=== PATIENT | male | born 1995 | race Caucasian/White ===

== ENCOUNTER 2022-07-11 17:51 | Observation (INO) ==
[2022-07-11 17:56] VITALS: BMI 23.0
--- NOTE | 2022-07-11 18:01 | DR.BITE ---
HPI Time Seen Time Seen by Provider: 07/11/22 18:00 PCP Primary Care Physician: GRETCHEN Complaint/Symptoms Chief Complaint Doctor Comments: 27 y/o male presents with a snake bite to the R thumb, about 20 minutes ago. Brought the snake in, appears to be a coral snake. Has a small puncture wound to R thumb. No pain or swelling. Has some numbness of the R hand (but does have a tourniquet on his R arm). [place] was [place], picked the snake up behind the head. went to relaes it, and it bit him. One puncture wound to the R thumb. Chief Complaint:: PT. STATES HE GOT BIT ON THE RIGHT THUMB BY A CORAL SNAKE 15 MINUTES PRIOR TO ARRIVAL. BITE BELA ON RIGHT THUMB. PT. DENIES PAIN BUT C/O NUMBNESS TO RIGHT ARM. COVID-19 Coronavirus risk:travel/contact w/high risk person: No Has patient experienced Coronavirus symptoms: No Source History Provided: Patient Mode of Arrival Mode of Arrival: Ambulatory Timing Onset of Chief Complaint: 07/11/22 PMH PMH Past Medical History: No Past Surgical History: No Surgical History: No History Family History History of Family Medical Conditions: No Social History Does patient currently use any type of tobacco product: Yes Have you used tobacco products in the last 12 months: Yes Type of Tobacco Use: Cigarettes Does any household member use tobacco: Yes Alcohol Use: None Do you use any recreational Drugs:: Yes (THC) Lives With: Family Lives Where: Home Travel Risk Coronavirus risk:travel/contact w/high risk person: No Has patient experienced Coronavirus symptoms: No Infectious screening In the last 2 months have you had wt loss of >10#?: NO Have you had fever, night sweats or hemotysis?: No Have you traveled outside the country in the last 6 months?: No Isolation: Standard ROS Review of Systems Constitutional: No Symptoms Reported Eyes: No Symptoms Reported ENTM: No Symptoms Reported Respiratoy: No Symptoms Reported Cardiovascular: No Symptoms Reported Gastrointestinal/Abdominal: No Symptoms Reported Genitourinary: No Symptoms Reported Neurological: No Symptoms Reported Musculoskeletal: No Symptoms Reported Integumentary: No Symptoms Reported Psychiatric: No Symptoms Reported All Other Systems: Reviewed and Negative PE Vital Signs Vital Signs: Temp Pulse Resp BP Pulse Ox O2 Del Method 07/11/22 19:30 92 H 27 H 98 07/11/22 19:30 121/69 07/11/22 19:15 95 H 18 100 07/11/22 19:00 95 H 22 100 07/11/22 19:00 127/78 07/11/22 18:45 105 H 20 100 07/11/22 18:30 98 H 21 99 07/11/22 18:30 129/79 07/11/22 18:15 98 H 24 98 07/11/22 18:01 148/112 07/11/22 18:01 107 H 35 H 98 07/11/22 18:00 103 H 28 H 96 07/11/22 17:55 106 H 25 H 07/11/22 17:52 99.2 F 109 H 23 172/108 98 Room Air Constitutional General Appearance: Alert and In No Apparent Distress Eyes Eye exam: PERRL and EOMI ENT ENT Exam: Normal Oropharynx and Mucous Membranes Moist Neck Neck Exam: Normal Inspection and Full ROM Respiratory Respiratory Exam: Normal Lung Sounds Bilat; negative Accessory Muscle Use or Respiratory Distress Cardiovascular Cardiovascular Exam: Regular Rate, Normal Rhythm and Normal Heart Sounds Abdominal Exam Abdominal Exam: Normal Inspection, Normal Bowel Sounds and Soft; negative Tenderness Extremities Extremities Exam: Normal Inspection; negative Edema Neurologic Neurological Exam: Alert, Oriented X3 and CN II-XII Intact; negative Motor Sensory Deficit Skin Skin Exam: Warm and Dry Other Exam Other Exam: R thumb - + small, closed puncture wound of R thumb, distal phalanx. No swelling or tenderness. + NV intact. COURSE Treatment Treatment: 27 y/o male bit with coral snake [employer]. Numbness improved with removal of a tourniquet he put on. No signs of envenomation on arrival, wound circled. W/u initiated. Given IV fluids. Tetanus already UTD. Picture of snake sent ot DNR agent, confirmed coral snake. Most likely a "dry bite". 1913 - labs acceptable. Continues to do well. Recommendation is to observe for 24 hours. Looking out for muscle weakness, respiratory failure which may require ventilatory support. Discussed with pt. Discussed with Dr Garcia, accepts the observation admission. ROR Labs Reviewed Laboratory Results Reviewed?: Yes Result Diagrams: 07/11/22 17:54 07/11/22 18:30 Laboratory: WBC 11.4 X10^3/uL (3.6-10.0) H 07/11/22 17:54 RBC 4.83 X10^6/uL (4.7-6.0) 07/11/22 17:54 Hgb 14.5 g/dL (13.5-18.0) 07/11/22 17:54 Hct 42.6 % (42.0-54.0) 07/11/22 17:54 MCV 88.3 fL (80.0-100.0) 07/11/22 17:54 MCH 30.0 pg (27.0-34.0) 07/11/22 17:54 MCHC 34.0 g/dL (33.0-35.0) 07/11/22 17:54 RDW 13.7 % (11.6-16.5) 07/11/22 17:54 Plt Count 392 X10^3/uL (150.0-450.0) 07/11/22 17:54 MPV 7.6 fL (7.4-11.0) 07/11/22 17:54 Neut % (Auto) 55.9 % (42.0-75.0) 07/11/22 17:54 Lymph % (Auto) 32.2 % (21.0-51.0) 07/11/22 17:54 [place] % (Auto) 4.9 % (0.0-13.0) 07/11/22 17:54 Eos % (Auto) 3.8 % (0.9-2.9) H 07/11/22 17:54 Baso % (Auto) 3.2 % (0.2-1.0) H 07/11/22 17:54 Neut # (Auto) 6.4 x10^3/uL (2.2-4.8) H 07/11/22 17:54 Lymph # (Auto) 3.7 X10^3/uL (1.3-2.9) H 07/11/22 17:54 [place] # (Auto) 0.6 x10^3/uL (0.3-0.8) 07/11/22 17:54 Eos # (Auto) 0.4 x10^3/uL (0.0-0.2) H 07/11/22 17:54 Baso # (Auto) 0.4 X10^3/uL (0.0-0.1) H 07/11/22 17:54 Absolute Nucleated RBC 0.1 /100WBC 07/11/22 17:54 PT 12.8 SECONDS (11.8-14.3) 07/11/22 17:54 INR Target Range - 07/11/22 17:54 INR 0.99 (0.8-1.3) 07/11/22 17:54 APTT 26.9 SECONDS (22.9-36.5) 07/11/22 17:54 PTT Comment - 07/11/22 17:54 Sodium 143 mmol/L (136-145) 07/11/22 18:30 Corrected Sodium 144 mmol/L (136-145) 07/11/22 18:30 Potassium 3.3 mmol/L (3.5-5.1) L 07/11/22 18:30 Chloride 104 mmol/L (98-107) 07/11/22 18:30 Carbon Dioxide 31.4 mmol/L (21-32) 07/11/22 18:30 BUN 12 mg/dL (7-18) 07/11/22 18:30 Creatinine 1.00 mg/dL (0.70-1.30) 07/11/22 18:30 Est GFR (MDRD) Af Amer > 60 (>60) 07/11/22 18:30 Est GFR (MDRD) Non-Af > 60 (>60) 07/11/22 18:30 Glucose 122 mg/dL (65-99) H 07/11/22 18:30 Calcium 8.6 mg/dL (8.5-10.1) 07/11/22 18:30 Corrected Calcium TNP 07/11/22 18:30 Total Bilirubin 0.20 mg/dL (0.2-1.0) 07/11/22 18:30 AST 15 Units/L (15-37) 07/11/22 18:30 ALT 26 Units/L (12-78) 07/11/22 18:30 Alkaline Phosphatase 85 Units/L (46-116) 07/11/22 18:30 Creatine Kinase 124 Units/L (39-308) 07/11/22 18:30 Total Protein 7.0 g/dL (6.4-8.2) 07/11/22 18:30 Albumin 4.1 g/dL (3.4-5.0) 07/11/22 18:30 Globulin 2.9 g/dL (2.5-4.5) 07/11/22 18:30 Albumin/Globulin Ratio 1.4 Ratio (1.1-2.1) 07/11/22 18:30 Lipase 40 Units/L (73-393) L 07/11/22 18:30 Labs acceptable. Opioid Opioid Risk Tool Age (Bela box if 16-45): Yes History of Preadolescent Sexual Abuse: No Total: 1 Total Score Risk Category: Low Risk Copyright: Kendell POPE predicting aberrant behaviors Discharge Plan Diagnosis Discharge Problem: Bite, snake, venomous Discharge Plan Patient Disposition: ADMITTED INPATIENT Condition: Stable Health Concerns: Post Hospitalization: new medications and changes needed to prevent readmission or further decline. Pt educated and given instructions on all concerns. Plan of Treatment: Continue with present treatment and follow up plan. Pt is to keep follow up appointment as instructed and take medications as ordered. Follow ups/Referrals Follow ups/Referrals: NFD,None [Primary Care Provider] - 3 days
[2022-07-11] MEDS ORDERED: NS 1,000 ML IV 1,000 ML IV ONE (18:02)
[2022-07-11] MEDS ORDERED: NS 1,000 ML IV 1,000 ML ONE (18:08)
[2022-07-11] MEDS ORDERED: ADACEL or BOOSTRIX TDaP VACCINE IM ONE (18:10)
[2022-07-11 18:11] LABS: BASOPHILS # (AUTO) 0.4 X10^3/uL (0.0-0.1); BASOPHILS % (AUTO) 3.2 % (0.2-1.0); EOSINOPHILS # (AUTO) 0.4 x10^3/uL (0.0-0.2); EOSINOPHILS % (AUTO) 3.8 % (0.9-2.9); HEMATOCRIT 42.6 % (42.0-54.0); HEMOGLOBIN 14.5 g/dL (13.5-18.0); LYMPHOCYTES # (AUTO) 3.7 X10^3/uL (1.3-2.9); LYMPHOCYTES % (AUTO) 32.2 % (21.0-51.0); MEAN CORPUSCULAR VOLUME 88.3 fL (80.0-100.0); MEAN PLATELET VOLUME 7.6 fL (7.4-11.0); MONOCYTES # (AUTO) 0.6 x10^3/uL (0.3-0.8); MONOCYTES % (AUTO) 4.9 % (0.0-13.0); NEUTROPHILS # (AUTO) 6.4 x10^3/uL (2.2-4.8); NEUTROPHILS % (AUTO) 55.9 % (42.0-75.0); RED BLOOD COUNT 4.83 X10^6/uL (4.7-6.0); RED CELL DISTRIBUTION WIDTH 13.7 % (11.6-16.5); WHITE BLOOD COUNT 11.4 X10^3/uL (3.6-10.0)
[2022-07-11 18:14] LABS: INR 0.99 (0.8-1.3)
[2022-07-11 18:53] LABS: ALANINE AMINOTRANSFERASE 26 Units/L (12-78); ALBUMIN 4.1 g/dL (3.4-5.0); ALKALINE PHOSPHATASE 85 Units/L (46-116); ASPARTATE AMINO TRANSFERASE 15 Units/L (15-37); BLOOD UREA NITROGEN 12 mg/dL (7-18); CALCIUM 8.6 mg/dL (8.5-10.1); CARBON DIOXIDE 31.4 mmol/L (21-32); CHLORIDE 104 mmol/L (98-107); COR NA(FOR HYPERGLY) 144 mmol/L (136-145); CREATINE KINASE 124 Units/L (39-308); LIPASE 40 Units/L (73-393); SODIUM 143 mmol/L (136-145); eGFR NON BLACK RACES > 60 (>60)
[2022-07-12 06:01] LABS: BASOPHILS # (AUTO) 0.1 X10^3/uL (0.0-0.1); BASOPHILS % (AUTO) 1.3 % (0.2-1.0); EOSINOPHILS # (AUTO) 0.4 x10^3/uL (0.0-0.2); EOSINOPHILS % (AUTO) 4.1 % (0.9-2.9); HEMATOCRIT 41.3 % (42.0-54.0); HEMOGLOBIN 14.2 g/dL (13.5-18.0); LYMPHOCYTES % (AUTO) 40.9 % (21.0-51.0); MEAN CORPUSCULAR HEMOGLOBIN 30.2 pg (27.0-34.0); MEAN CORPUSCULAR HGB CONC 34.2 g/dL (33.0-35.0); MEAN CORPUSCULAR VOLUME 88.3 fL (80.0-100.0); MEAN PLATELET VOLUME 8.1 fL (7.4-11.0); MONOCYTES # (AUTO) 0.6 x10^3/uL (0.3-0.8); MONOCYTES % (AUTO) 6.6 % (0.0-13.0); NEUTROPHILS # (AUTO) 4.6 x10^3/uL (2.2-4.8); NEUTROPHILS % (AUTO) 47.1 % (42.0-75.0); RED BLOOD COUNT 4.68 X10^6/uL (4.7-6.0); RED CELL DISTRIBUTION WIDTH 13.6 % (11.6-16.5); WHITE BLOOD COUNT 9.7 X10^3/uL (3.6-10.0)
[2022-07-12 06:13] LABS: ALANINE AMINOTRANSFERASE 25 Units/L (12-78); ALKALINE PHOSPHATASE 82 Units/L (46-116); ASPARTATE AMINO TRANSFERASE 11 Units/L (15-37); BLOOD UREA NITROGEN 15 mg/dL (7-18); CALCIUM 8.8 mg/dL (8.5-10.1); CARBON DIOXIDE 28.3 mmol/L (21-32); CHLORIDE 106 mmol/L (98-107); CREATININE 0.86 mg/dL (0.70-1.30); SODIUM 144 mmol/L (136-145); TOTAL PROTEIN 6.9 g/dL (6.4-8.2); eGFR NON BLACK RACES > 60 (>60)
[2022-07-12 08:39] VITALS: BP 99/51
== END 2022-07-12 11:00 | disposition home or self-care (01) ==
LOC: ER 17:51 → MED/SURG 17:51
PROVIDERS: ADMIT Internal Medicine; ATTEND Internal Medicine
DX: R20.0 Anesthesia of skin; T63.0 Toxic effect of snake venom; E87.6 Hypokalemia; Y92.89 Other specified places as the place of occurrence of the external cause